=== PATIENT | female | born 1980 | race Caucasian/White ===

== ENCOUNTER 2018-06-09 10:09 | Emergency (ER) | payer OTHER ==
[~2018-06-09] VITALS: Ht 162.6 cm; Wt 59.0 kg
[2018-06-09] MEDS ORDERED: SYNTHROID100 MCG (10:16)
[2018-06-09] MEDS ORDERED: SYNTHROID88 MCG (10:16)
== END 2018-06-09 17:20 | disposition home or self-care (01) ==
LOC: ER 10:09
DX: R42 Dizziness and giddiness (principal)

== ENCOUNTER → 2019-12-29 | Outpatient (CLI) | payer OTHER ==
[~2019-12-29] MED LIST: SYNTHROID100 MCG; SYNTHROID88 MCG
== END | disposition home or self-care (01) ==
LOC: PRENATAL 09:00
PROVIDERS: ATTEND Obstetrics & Gynecology Maternal & Fetal Medicine
DX: Z36.89 Encounter for other specified antenatal screening (principal); O36.80X1 Pregnancy with inconclusive fetal viability, fetus 1; O09.521 Supervision of elderly multigravida, first trimester; Z3A.11 11 weeks gestation of pregnancy

== ENCOUNTER 2020-01-04 10:00 | Inpatient (IN) | payer OTHER ==
[~2020-01-04] VITALS: Ht 13.7 cm; Wt 60.3 kg
[2020-01-05] MEDS ORDERED: NAPROXEN SODIU500 M1 PO (08:48)
[2020-01-05] MEDS ORDERED: MORGIDOX100 MG PO (08:48)
== END 2020-01-05 09:34 | DRG 779 ==
LOC: CIR.AMB 10:00 → O/R 15:03 → OB/GYN 15:39
PROVIDERS: ADMIT Obstetrics & Gynecology; ATTEND Obstetrics & Gynecology
PROC: 10D17Z9 Manual Extraction of Products of Conception, Retained, Via Natural or Artificial Opening (ICD-10-PCS; principal; 2020-01-04 12:30)
DX: O02.1 Missed abortion (principal); Z20.828 Contact with and (suspected) exposure to other viral communicable diseases